=== PATIENT | male | born 1940 | race Caucasian/White ===

== ENCOUNTER 2016-06-02 05:01 | Day surgery (SDC) | payer BC ==
[2016-05-20 08:16] VITALS: BMI 29.0
--- NOTE | 2016-05-20 08:48 | PAT Medication Instructions ---
Service Date May 20, 2016. Current Home Medication List Ascorbic Acid (Vitamin C), 1 TAB PO QAM Bimatoprost (Lumigan), 1 DROP OPR QAM Brinzolamide-Brimonidine Tartr (Simbrinza), 1 DROP OPR QAM Fish Oil ([place]-3), 1 CAP PO QAM Losartan Potassium (Cozaar), 50 MG PO QAM Multivitamin (Multivitamin), 1 TAB PO QAM Prednisolone Acetate (Ophth) (Pred Forte 1% Oph), 1 DROPS OPR QID PRN for DIRECTED Tamsulosin Hcl (Flomax), 0.4 MG PO QAM [Ketorolac Eye], 1 DROP OP UD Medication Instructions For Your Scheduled Surgery - Hold the following medications starting 05/21/16: Fish Oil ([place]-3), 1 CAP PO QAM - Hold the following medications the morning of surgery: Tamsulosin Hcl (Flomax), 0.4 MG PO QAM Multivitamin (Multivitamin), 1 TAB PO QAM Losartan Potassium (Cozaar), 50 MG PO QAM Ascorbic Acid (Vitamin C), 1 TAB PO QAM - Take the following medications the morning of surgery with a sip of water: [Ketorolac Eye], 1 DROP OP UD Prednisolone Acetate (Ophth) (Pred Forte 1% Oph), 1 DROPS OPR QID PRN for DIRECTED Brinzolamide-Brimonidine Tartr (Simbrinza), 1 DROP OPR QAM Bimatoprost (Lumigan), 1 DROP OPR QAM - Take the following medications as scheduled the night before surgery: Prednisolone Acetate (Ophth) (Pred Forte 1% Oph), 1 DROPS OPR QID PRN for DIRECTED If you have any questions please call us at [phone] (Savita Mcintyre PA-C) or [phone] or [phone]
[2016-05-20 10:02] LABS: BASO % 0.4 %; BASO ABS # 0.02 K/uL (0-0.2); COMPLETE YES; EOS % 3.6 %; HEMATOCRIT 42.4 % (42-52); IG% 0.2 %; LYMPH ABS # 1.46 K/uL (1.2-3.4); MEAN CELL VOLUME 89.3 fL (80-100); MEAN CORPUSCULAR HEMOGLOBIN 30.3 pg (25-34); MEAN PLATELET VOLUME 10.2 fL (7.4-10.4); MONO % 8.5 %; NEUT % 61.3 %; PLATELET COUNT 200 K/uL (130-400); RED BLOOD COUNT 4.75 M/uL (4.7-6.1); WHITE BLOOD COUNT 5.62 K/uL (4.8-10.8)
[2016-05-20 10:13] LABS: PARTIAL THROMBOPLASTIN RATIO 1.1
[2016-05-20 10:30] LABS: BUN/CREATININE RATIO 17.5 (10-20); CALCIUM 9.2 mg/dl (8.5-10.1); POTASSIUM 4.2 mmol/L (3.5-5.1)
[~2016-06-02] VITALS: Ht 182.9 cm; Wt 96.3 kg
[~2016-06-02 05:01] MED LIST: ASCA500 PO; BIMA0.01 OPR; BRIN3SUS OPR; KETOROLAC EYE OP; LOSA50TA6 PO; MULT-506 PO; OMEG10007 PO; PRED1SUS3 OPR; TAMS0.4C59 PO
[2016-06-02 05:41] VITALS: BP 135/84; PULSE 62; TEMP 36.7; O2SAT 96; Ht 182.9 cm; Wt 96.3 kg
[2016-06-02] MEDS ORDERED: CLINDAMYCIN 600 MG/54 ML D5W IV SCH (06:00)
[2016-06-02] MEDS ORDERED: LACTATED RINGER'S 1000ML 1,000 ML IV SCH ×2 (06:00)
[2016-06-02] MEDS ORDERED: HEPARIN SOD 5000 UNIT/0.5 ML CARP SQ SCH (06:00)
[2016-06-02] MEDS ORDERED: ONDANSETRON INJ 2 MG/ML 2 ML VIAL ONE (06:44)
[2016-06-02] MEDS ORDERED: NEOSTIGMINE METHYLSULFATE 5 MG/5 ML SYR ONE (06:44)
[2016-06-02] MEDS ORDERED: LIDOCAINE HCL 2% 2 ML VIAL (20MG/ML) ONE (06:44)
[2016-06-02] MEDS ORDERED: PROPOFOL IV EMULSION 10 MG/ML 20 ML VIAL IV ONE (06:44)
[2016-06-02] MEDS ORDERED: MIDAZOLAM HCL 1 MG/ML 2ML VIAL ONE (06:44)
[2016-06-02] MEDS ORDERED: DEXAMETHASONE SOD INJ 4 MG/ML VIAL ONE (06:44)
[2016-06-02] MEDS ORDERED: FENTANYL CITRATE INJ 50 MCG/1 ML 2 ML VIAL ONE ×2 (06:44)
[2016-06-02] MEDS ORDERED: GLYCOPYRROLATE INJ 0.2 MG/ML VIAL ONE (06:44)
[2016-06-02] MEDS ORDERED: ROCURONIUM BROMIDE 10 MG/ML 5 ML VIAL ONE (06:44)
[2016-06-02] MEDS ORDERED: BUPIVACAINE/EPINEPHRINE 0.5% MPF 1:200,000 30 ML VIAL ONE (06:47)
[2016-06-02] MEDS ORDERED: ONDANSETRON INJ 2 MG/ML 2 ML VIAL IV PRN ×2 (07:00→08:15)
[2016-06-02] MEDS ORDERED: LACTATED RINGER'S 1000ML 1,000 ML IV PRN (07:00)
[2016-06-02] MEDS ORDERED: FENTANYL CITRATE INJ 50 MCG/1 ML 2 ML VIAL IV PRN (07:00)
--- NOTE | 2016-06-02 07:07 | History and Physical ---
History & Physical Date Jun 02, 2016. Chief Complaint right inguinal hernia History of Present Illness The patient is a 75 year old male with complaints of right groin pain /bulge Past Medical/Surgical History Medical Problems: (1) Calculus Of Kidney (2) Diverticulosis Colon (W/O Ment Of Hemorrhage) (3) Glaucoma Nos (4) Hyperlipidemia Nec/Nos (5) Hypertension Nos Additional History Hepatic Disease: No Endocrine Disorder: No Kidney Disease: No Hypertension: Yes Heart Disease: No Bleeding Tendencies: No Infectious Diseases: No Allergies Coded Allergies: Penicillins (Verified Allergy, Unknown, UNSURE OF RXN, 06/02/16) Tetracyclines (Verified Allergy, Unknown, WAS TOLD HE WAS ALLERGIC, UNSURE OF RXN, 06/02/16) Home Medications Scheduled Ascorbic Acid (Vitamin C), 1 TAB PO QAM Bimatoprost (Lumigan), 1 DROP OPR QAM Brinzolamide-Brimonidine Tartr (Simbrinza), 1 DROP OPR QAM Fish Oil ([place]-3), 1 CAP PO QAM Losartan Potassium (Cozaar), 50 MG PO QAM Multivitamin (Multivitamin), 1 TAB PO QAM Tamsulosin Hcl (Flomax), 0.4 MG PO QAM Scheduled PRN Prednisolone Acetate (Ophth) (Pred Forte 1% Oph), 1 DROPS OPR QID PRN for DIRECTED Physical Examination Skin: warm/dry Eyes: normal inspection, EOMI ENT: normal ENT inspection Head: normocephalic Neck: supple, no adenopathy Respiratory/Chest: lungs clear, normal breath sounds Cardiovascular: regular rate, rhythm, no edema Abdomen / GI: normal bowel sounds, + pertinent finding (right inguinal hernia) Extremities: normal inspection Diagnosis right inguinal hernia Plan of Treatment open right inguinal hernia repair with mesh
[2016-06-02] MEDS ORDERED: HYDR-5688 PO (07:08)
--- NOTE | 2016-06-02 07:09 | Discharge Instructions ---
Discharge Instructions Admission Reason for Admission: Right Inguinal Hernia Discharge Discharge Diagnosis / Problem: right inguinal hernia Discharge Goals Goal(s): Decrease discomfort, Improve function Activity Recommendations Activity Limitations: as noted below Lifting Limitations: no more than 10 pounds Exercise/Sports Limitations: until after follow-up appointment May Resume Sexual Activity: after follow-up appointment Shower/Bathe: tomorrow . Instructions / Follow-Up Instructions / Follow-Up f/u Dr. Stevens 1-2 weeks Current Hospital Diet Patient's current hospital diet: Discharge Diet Recommended Diet: Regular Diet Procedures Procedures Performed: open right inguinal hernia repair with mesh Pending Studies Studies pending at discharge: no Medical Emergencies . Who to Call and When: Medical Emergencies: If at any time you feel your situation is an emergency, please call 911 immediately. . Non-Emergent Contact Non-Emergency issues call your: Primary Care Provider, Surgeon Call Non-Emergent contact if: temperature is above 101, wound has increased drainage, wound has increased redness, wound has increased pain . "Provider Documentation" section prepared by Ankit Stevens. VTE Core Measure Inpt VTE Proph given/why not?: Unfractionated heparin SQ, SCD's
[2016-06-02] MEDS ORDERED: KETOROLAC TROMETHAMINE 30 MG/ML VIAL ONE (07:24)
[2016-06-02] MEDS ORDERED: EpHEDrine SULFATE 50MG/5ML SYR ONE (07:44)
[2016-06-02] MEDS ORDERED: SODIUM CHLORIDE 0.9% 1000ML 1,000 ML IV SCH (08:11)
--- NOTE | 2016-06-02 08:11 | [facility] Operative Report ---
Operative Report Operative Date Jun 02, 2016. Pre-Operative Diagnosis Right inguinal hernia Post-Operative Diagnosis direct and indirect right inguinal hernia Procedure(s) Performed open right inguinal hernia repair with mesh Surgeon Dr. Ankit Stevens Director Of Video Analytics Surgeon(s) Ugo Mosher PA-C Findings direct and indirect right inguinal hernia Anesthesia general with LMA Complication(s) None Disposition Recovery Room / PACU I attest to the content of the Intraoperative Record and any orders documented therein. Any exceptions are noted below.
[2016-06-02] MEDS ORDERED: KETOROLAC TROMETHAMINE 30 MG/ML VIAL IV. PRN (08:15)
[2016-06-02] MEDS ORDERED: IBUPROFEN 600 MG TAB PO PRN (08:15)
[2016-06-02] MEDS ORDERED: HYDROCODONE/ACETAMOPHEN 5/325MG TAB PO PRN ×2 (08:15)
--- NOTE | 2016-06-02 09:04 | Anesthesiology Progress Note ---
Anesthesia Post Op Note Date & Time Jun 02, 2016 at 09:05 Vital Signs Pain Intensity: 2 Vital Signs Past 12 Hours Date Time Temp Pulse Resp B/P Pulse Ox O2 Delivery O2 Flow Rate FiO2 06/02/16 09:02 36.4 06/02/16 08:58 137/71 06/02/16 08:56 73 15 06/02/16 08:56 74 15 97 06/02/16 08:53 137/75 06/02/16 08:51 72 15 97 06/02/16 08:51 72 15 06/02/16 08:50 72 16 94 06/02/16 08:50 70 16 06/02/16 08:48 139/72 06/02/16 08:45 72 16 06/02/16 08:45 72 16 96 06/02/16 08:44 72 16 06/02/16 08:44 73 16 98 06/02/16 08:43 138/68 06/02/16 08:39 73 15 100 06/02/16 08:39 72 15 06/02/16 08:38 146/71 06/02/16 08:34 75 16 100 06/02/16 08:34 75 16 06/02/16 08:33 67 15 138/67 100 06/02/16 08:33 68 15 06/02/16 08:28 79 16 145/65 100 06/02/16 08:28 78 16 06/02/16 08:23 82 14 146/66 100 06/02/16 08:23 36.2 89 14 149/63 99 Mask 10 06/02/16 08:23 83 14 06/02/16 05:41 36.7 62 18 135/84 96 Room Air Notes Mental Status: alert / awake / arousable, participated in evaluation Pt Amnestic to Procedure: Yes Nausea / Vomiting: adequately controlled Pain: adequately controlled Airway Patency, RR, SpO2: stable & adequate BP & HR: stable & adequate Hydration State: stable & adequate Anesthetic Complications: no major complications apparent
[2016-06-02 09:20] VITALS: BP 143/73; PULSE 69; TEMP 36.4; O2SAT 95
[2016-06-02 09:46] VITALS: BP 150/69; PULSE 79; O2SAT 95
[2016-06-02 10:22] VITALS: BP 166/92; PULSE 88; TEMP 36.7; O2SAT 97
--- NOTE | 2016-06-02 10:45 | OPERATIVE REPORT ---
DATE OF OPERATION: 06/02/2016 PREOPERATIVE DIAGNOSIS: Left inguinal hernia. POSTOPERATIVE DIAGNOSIS: Direct and indirect left inguinal hernia. PROCEDURE: Open left inguinal hernia repair with mesh. SURGEON: Dr. Stevens. X RAY PHYSICIAN: Ugo Mosher PA-C. ESTIMATED BLOOD LOSS: Approximately 10 mL. COMPLICATIONS: No immediate. ANESTHESIA: General. The patient tolerated the procedure well. OPERATIVE NOTE: After informed consent was obtained, the patient taken to the operating suite and placed in supine position. After successful intubation a Lee catheter was placed and the left groin was sterilely prepped and draped in usual fashion. A left inguinal incision was made with a 10 blade scalpel and carried down through the soft tissue using electrocautery. We were able to skeletonize the external oblique aponeurosis. A new blade was used to make a small incision and Metzenbaum scissors were used to extend this down through the external ring as well as for several centimeters proximally. Once in the inguinal canal, we used some blunt dissection to free up the cord and cord structures from surrounding tissue. A [place]a clamp was used to grab the cord and cord structures and elevate them. A blunt finger was used to sweep the cord structures off the pubic bone and a [place] drain placed around them. When we did this, we noticed a moderate sized direct hernia through the floor of the canal. As we inspected the cord structures we also noted a garden variety indirect hernia sac. We were able to use primarily blunt dissection to free this from the cord and cord structures as well as small amounts of electrocautery. When we got it down to its neck we were able to clamp the neck of the sac and divide it and tie it off with 3-0 Vicryl and dunk it back into the abdominal cavity. We then irrigated the wound. A gustafson-holed precut polypropylene mesh was used as an onlay. It was secured distally to Elmer's ligament, laterally along the shelving portion of Poupart's ligament and medially along the rectus musculature. The "arms" of the mesh were wrapped around behind the cord and cord structures and secured to underlying muscle. The mesh was tension free and did not impinge on the cord structures themselves. A final irrigation was performed. There was adequate hemostasis. We did inject around the edges of the mesh with Marcaine for postoperative analgesia. We then closed the external oblique aponeurosis with 2-0 Vicryl in a running fashion. Soft tissue was irrigated and closed with 3-0 Vicryl and 4-0 Monocryl. Some additional Marcaine was injected around the skin. Dermabond was used as a dressing. The patient was awakened, extubated, and transferred to recovery in stable condition. I attest to the content of the Intraoperative Record and any orders documented therein. Any exceptio ns are noted below.
[2017-01-03] MEDS ORDERED: ARTISOL12 OPB (10:23)
[2017-01-03] MEDS ORDERED: ERYOPO OPR (10:23)
== END 2016-06-02 10:30 | disposition home or self-care (01) ==
LOC: C.ACU 05:01
PROVIDERS: ATTEND Surgery
DX: K40.90 Unilateral inguinal hernia, without obstruction or gangrene, not specified as recurrent (principal); I10 Essential (primary) hypertension; N20.0 Calculus of kidney; K57.30 Diverticulosis of large intestine without perforation or abscess without bleeding; E78.5 Hyperlipidemia, unspecified; Z88.0 Allergy status to penicillin; Z88.1 Allergy status to other antibiotic agents

== ENCOUNTER → 2016-07-28 | Outpatient (CLI) | payer BC ==
[~2016-07-28] MED LIST changes: +ARTISOL12 OPB; +ERYOPO OPR; +HYDR-5688 PO; -KETOROLAC EYE OP; +TAMS0.4C38 PO
[2016-07-28 10:26] LABS: ALT/SGPT 25 U/L (12-78); AST/SGOT 13 U/L (15-37); BLOOD UREA NITROGEN 18 mg/dl (7-18); BUN/CREATININE RATIO 18.6 (10-20); CALCIUM 8.8 mg/dl (8.5-10.1); CARBON DIOXIDE 29 mmol/L (21-32); CHLORIDE 108 mmol/L (98-107); CHOLESTEROL 174 mg/dl (0-200); CREATININE 0.94 mg/dl (0.60-1.40); GLUCOSE 94 mg/dl (70-99); POTASSIUM 4.1 mmol/L (3.5-5.1); SODIUM 143 mmol/L (136-145)
[2016-07-28 10:30] LABS: CHOLESTEROL/HDL RATIO 2.9; HDL CHOLESTEROL 61 mg/dl; LDL CHOLESTEROL CALCULATED 103 mg/dl; TRIGLYCERIDES 52 mg/dl (0-150); VERY LOW DENSITY LIPOPROT CALC 10 mg/dl
[2016-07-28 11:52] LABS: ESTIMATED AVERAGE GLUCOSE 97 mg/dl; HA1C FLAG Normal (Normal)
== END | disposition home or self-care (01) ==
LOC: C.LAB1850 09:18
PROVIDERS: ATTEND Internal Medicine
DX: R73.01 Impaired fasting glucose (principal); E78.5 Hyperlipidemia, unspecified; N40.0 Benign prostatic hyperplasia without lower urinary tract symptoms

== ENCOUNTER → 2016-10-06 | Outpatient (CLI) | payer BC ==
--- NOTE | 2016-10-06 09:35 | DIAGNOSTIC IMAGING REPORT ---
KUB CLINICAL HISTORY: NEPHROLITHIASIS COMPARISON STUDY: 11/10/2014 FINDINGS: The soft tissues, psoas shadows, renal outlines and intestinal gas pattern appear normal. There is no evidence for bowel obstruction. No abnormal abdominal calcifications are seen. IMPRESSION: Normal study. Electronically signed by: Fransisco Stafford M.D. 10/06/2016 9:34 AM Dictated Date/Time: 10/06/2016 9:33 AM
== END | disposition home or self-care (01) ==
LOC: C.RAD1850 08:53
PROVIDERS: ATTEND Urology
DX: N20.0 Calculus of kidney (principal); N40.0 Benign prostatic hyperplasia without lower urinary tract symptoms

== ENCOUNTER → 2016-11-29 | Outpatient (CLI) | payer BC ==
--- NOTE | 2016-11-29 17:44 | DIAGNOSTIC IMAGING REPORT ---
BRAIN WITHOUT CONTRAST HISTORY: Mental status change IMBALANCE TECHNIQUE: Multiplanar multisequence MRI of the brain was performed without the use of contrast. COMPARISON STUDY: None. FINDINGS: Diffusion-weighted images show no evidence for an acute ischemic process. There are findings of chronic small vessel change of the periventricular deep white matter regions. This is considered moderate. There are findings of mild age-related cerebral atrophy. Ventricular system is midline. Sella and parasellar regions are unremarkable. Postcontrast images are considered negative for an enhancing lesion. No abnormal enhancement characteristics of the internal auditory canals is identified. IMPRESSION: Age-related change. Moderate chronic small vessel change. No acute process. The above report was generated using voice recognition software. It may contain grammatical, syntax or spelling errors. Electronically signed by: Fransisco Stafford M.D. 11/29/2016 5:42 PM Dictated Date/Time: 11/29/2016 5:33 PM
== END | disposition home or self-care (01) ==
LOC: C.MRIBC 16:41
PROVIDERS: ATTEND Internal Medicine
DX: R26.89 Other abnormalities of gait and mobility (principal); H93.19 Tinnitus, unspecified ear

== ENCOUNTER → 2017-01-18 | Day surgery (SDC) | payer BC ==
[2017-01-03 10:23] VITALS: BMI 28.0
[~2017-01-18] VITALS: Ht 182.9 cm; Wt 94.1 kg
[~2017-01-18] MED LIST changes: -BRIN3SUS OPR; -HYDR-5688 PO; -PRED1SUS3 OPR; +SODIUM CHLORIDE 0.9% 500ML 500 ML IV ONE
[2017-01-18 14:33] VITALS: Ht 182.9 cm; Wt 94.1 kg
--- NOTE | 2017-01-18 15:11 | Endo History and Physical ---
History & Physical Date of Service: Jan 18, 2017. Chief Complaint: SCREENING FOR COLON CANCER Referring Physician: DR CASILLAS History of Present Illness 76 yo CM who presents for screening colonoscopy. Past Surgical History Hx Cardiac Surgery: No Hx Internal Defibrillator: No Hx Pacemaker: No Hx Abdominal Surgery: Yes (INGUINAL HERNIA) Hx of Implantable Prosthesis: No Hx Post-Op Nausea and Vomiting: No Hx Cancer Surgery: No Hx Thoracic Surgery: Yes (EXCISION OF LESION ON CHEST WALL) Hx Orthopedic: Yes (LT KNEE MENISICUS REPAIR, RT KNEE ACL REPAIR, PCL REPAIR) Hx Urinary Tract Surgery: Yes (LITHOTRIPSY) Family History None Social History Smoking Status: Former Smoker Hx Substance Use: No Hx Alcohol Use: Yes (1 DRINK DAILY ON AVERAGE) Allergies Coded Allergies: Penicillins (Verified Allergy, Unknown, UNSURE OF RXN, 01/03/17) WAS TOLD A KID ? REACTION Tetracyclines (Verified Allergy, Unknown, WAS TOLD HE WAS ALLERGIC, UNSURE OF RXN, 01/03/17) Current Medications Reported Home Medications Medications Dose Route/Sig Max Daily Dose Days Date Category Artificial Tears (Artificial Tear Solution) 1 Nai Nai 1 Drops OPB QID PRN 01/03/17 Reported Erythromycin Opth (Erythromycin) 12 Appln/3.5 Gm Oint 1 Appln OPR HS 01/03/17 Reported Vitamin C (Ascorbic Acid) 500 Mg Tab 1 Tab PO QAM 05/20/16 Reported Cozaar (Losartan Potassium) 50 Mg Tab 50 Mg PO QAM 05/20/16 Reported [place]-3 (Fish Oil) 1 Ea Cap 1 Cap PO QAM 05/20/16 Reported Flomax (Tamsulosin Hcl) 0.4 Mg Cap 0.4 Mg PO HS 04/28/13 Reported Multivitamin (Multivitamins) Tab 1 Tab PO QAM 09/07/10 Reported Vital Signs Weight (Kilograms): 94.09 Height (Feet): 6 Height (Inches): 0 Date Time Temp Pulse Resp B/P (MAP) Pulse Ox O2 Delivery O2 Flow Rate FiO2 01/18/17 14:38 37.1 86 18 158/75 (102) 100 Room Air Physical Exam General Appearance: WD/WN, no apparent distress Respiratory/Chest: Auscultation: breath sounds normal Cardiovascular: Heart Auscultation: RRR Abdomen: Bowel Sounds: normal Inspection & Palpation: soft, non-distended, no tenderness, guarding & rebound Assessment and Plan Assessment: 76 yo CM who presents for screening colonoscopy. Plan: Proceed with colonoscopy.
--- NOTE | 2017-01-18 15:43 | Discharge Instructions ---
Endoscopy Patient Instructions Date / Procedure(s) Performed Jan 18, 2017. Colonoscopy Allergy Information Coded Allergies: Penicillins (Verified Allergy, Unknown, UNSURE OF RXN, 01/03/17) WAS TOLD A KID ? REACTION Tetracyclines (Verified Allergy, Unknown, WAS TOLD HE WAS ALLERGIC, UNSURE OF RXN, 01/03/17) Discharge Date / Findings Jan 18, 2017. Colon polyps Diverticulosis Internal hemorrhoids Reported Home Medications Medications Dose Route/Sig Max Daily Dose Days Date Category Artificial Tears (Artificial Tear Solution) 1 Nai Nai 1 Drops OPB QID PRN 01/03/17 Reported Erythromycin Opth (Erythromycin) 12 Appln/3.5 Gm Oint 1 Appln OPR HS 01/03/17 Reported Vitamin C (Ascorbic Acid) 500 Mg Tab 1 Tab PO QAM 05/20/16 Reported Cozaar (Losartan Potassium) 50 Mg Tab 50 Mg PO QAM 05/20/16 Reported [place]-3 (Fish Oil) 1 Ea Cap 1 Cap PO QAM 05/20/16 Reported Flomax (Tamsulosin Hcl) 0.4 Mg Cap 0.4 Mg PO HS 04/28/13 Reported Multivitamin (Multivitamins) Tab 1 Tab PO QAM 09/07/10 Reported Provider Instructions Activity Restrictions - No exercising or heavy lifting for 24 hours. - Do not drink alcohol the day of the procedure. - Do not drive a car or operate machinery until the day after the procedure. - Do not make any important decisions or sign important papers in 24 hours after the procedure. Following Day: - Return to full activity which may include returning to work/school. Diet Start your diet with liquids and light foods (jello, soup, juice, toast). Then eat your usual diet if not nauseated. Treatment For Common After Affects For mild abdominal pain, bloating, or excessive gas: - Rest - Eat lightly - Lie on right side Follow-Up Information Follow-up with DR CASILLAS as scheduled Anesthesia Information What You Should Know You have had a procedure that required some medicine to reduce anxiety and discomfort. This treatment is called moderate sedation. After receiving the treatment, you may be sleepy, but you will be able to breathe on your own. The effects of the treatment may last for several hours. Follow these instructions along with Activity/Diet recommendations noted above: * Do NOT do anything where dizziness or clumsiness would be dangerous. * Rest quietly at home today, then you can be up and about tomorrow. * Have a responsible person stay with you the rest of today. * You may have had an I.V. today. If so, you may take the dressing off later today. Recommendations Call your doctor if: * Trouble breathing * Continuous vomiting for more than 24 hours * Temperature above 101 degrees * Severe abdominal pain or bloating * Pain not relieved by pain medicine ordered * There is increased drainage or redness from any incision * A large amount of rectal bleeding greater than 2-3 tablespoons. (If you had a polyp/s removed or have hemorrhoids, a small amount of blood - from the rectum is to be expected.) * You have any unanswered questions or concerns. IN THE EVENT OF A SERIOUS EMERGENCY, GO TO THE NEAREST EMERGENCY ROOM Your discharge instructions were prepared by provider Kirk Avilez. Patient Instructions Signature Page Timmy Melendez Patient (or Guardian) Signature/Date: I have read and understand the instructions given to me by my caregivers. Caregiver/RN/Doctor Signature/Date: The above-named patient and/or guardian has received patient instructions on this date. + Original Patient Signature Page (only) stays with chart. Please make copy for patient.
--- NOTE | 2017-01-18 15:56 | GI REPORT ---
Procedure Date: 01/18/2017 3:00 PM Procedure: Colonoscopy Indications: Screening for colorectal malignant neoplasm Medicines: Monitored Anesthesia Care Complications: No immediate complications. Estimated Blood Loss: Estimated blood loss: none. Procedure: Pre-Anesthesia Assessment: - Prior to the procedure, a History and Physical was performed, and patient medications and allergies were reviewed. The patient's tolerance of previous anesthesia was also reviewed. The risks and benefits of the procedure and the sedation options and risks were discussed with the patient. All questions were answered, and informed consent was obtained. Prior Anticoagulants: The patient has taken no previous anticoagulant or antiplatelet agents. ASA Grade Assessment: II - A patient with mild systemic disease. After reviewing the risks and benefits, the patient was deemed in satisfactory condition to undergo the procedure. After I obtained informed consent, the scope was passed under direct vision. Throughout the procedure, the patient's blood pressure, pulse, and oxygen saturations were monitored continuously. The scope was introduced through the anus and advanced to the terminal ileum. The colonoscopy was performed without difficulty. The patient tolerated the procedure well. The quality of the bowel preparation was good. The terminal ileum, ileocecal valve, appendiceal orifice, and rectum were photographed. Findings: Four sessile polyps were found in the rectum and in the transverse colon. The polyps were 5 to 8 mm in size. These polyps were removed with a hot snare. Resection and retrieval were complete. Multiple small-mouthed diverticula were found in the sigmoid colon. Non-bleeding internal hemorrhoids were found during retroflexion. The hemorrhoids were small. Impression: - Four 5 to 8 mm polyps in the rectum and in the transverse colon, removed with a hot snare. Resected and retrieved. - Diverticulosis in the sigmoid colon. - Non-bleeding internal hemorrhoids. Recommendation: - Resume previous diet. - Continue present medications. - Repeat colonoscopy for surveillance based on pathology results. - Return to primary care physician as previously scheduled. Kirk Avilez, DO 01/18/2017 3:56:15 PM This report has been signed electronically. Note Initiated On: 01/18/2017 3:00 PM I attest to the content of the Intraoperative Record and orders documented therein, exceptions below
--- NOTE | 2017-01-18 16:05 | Anesthesiology Progress Note ---
Anesthesia Post Op Note Date & Time Jan 18, 2017 at 16:05 Vital Signs Pain Intensity: 0 Vital Signs Past 12 Hours Date Time Temp Pulse Resp B/P (MAP) Pulse Ox O2 Delivery O2 Flow Rate FiO2 01/18/17 15:50 72 16 94/51 (65) 96 Room Air 01/18/17 14:38 37.1 86 18 158/75 (102) 100 Room Air Notes Mental Status: alert / awake / arousable, participated in evaluation Pt Amnestic to Procedure: Yes Nausea / Vomiting: adequately controlled Pain: adequately controlled Airway Patency, RR, SpO2: stable & adequate BP & HR: stable & adequate Hydration State: stable & adequate Anesthetic Complications: no major complications apparent
[2017-01-18 16:11] VITALS: BP 137/79; PULSE 64; O2SAT 98
== END | disposition home or self-care (01) ==
LOC: C.GI 14:17
PROVIDERS: ATTEND Internal Medicine
DX: Z12.11 Encounter for screening for malignant neoplasm of colon (principal); K62.1 Rectal polyp; K57.30 Diverticulosis of large intestine without perforation or abscess without bleeding; K64.8 Other hemorrhoids; Z87.442 Personal history of urinary calculi; Z87.891 Personal history of nicotine dependence; I10 Essential (primary) hypertension; M19.90 Unspecified osteoarthritis, unspecified site

== ENCOUNTER 2017-01-27 19:29 | Emergency (ER) | payer BC ==
[~2017-01-27] VITALS: Ht 182.9 cm; Wt 98.7 kg
[~2017-01-27 19:29] MED LIST changes: -BIMA0.01 OPR; -SODIUM CHLORIDE 0.9% 500ML 500 ML IV ONE; -TAMS0.4C38 PO
[2017-01-27 19:35] VITALS: BP 164/90; PULSE 67; TEMP 36.6; O2SAT 96; Ht 182.9 cm; Wt 98.7 kg
[2017-01-27] MEDS ORDERED: XYLOCAINE 1%/SOD BICARB 20 ML VIAL INFIL ONE (20:30)
[2017-01-27] MEDS ORDERED: BUPIVACAINE 0.5 % 5 MG/1 ML MPF 30ML VIAL INFIL ONE (20:30)
[2017-01-27] MEDS ORDERED: TAMS0.4C38 PO (20:34)
--- NOTE | 2017-01-27 21:34 | DIAGNOSTIC IMAGING REPORT ---
L FINGER(S) MIN 2 VIEWS ROUTINE CLINICAL HISTORY: 76 years-old Male presenting with LEFT 3RD FINGER, EVAL FX. TECHNIQUE: Frontal, oblique, and lateral views of the left third finger were obtained. COMPARISON: None. FINDINGS: No acute fracture or malalignment. No radiographic soft tissue abnormality. IMPRESSION: No acute osseous injury of the left third finger. Electronically signed by: Len Werner M.D. 01/27/2017 9:32 PM Dictated Date/Time: 01/27/2017 9:31 PM
--- NOTE | 2017-01-27 21:57 | EMERGENCY ROOM VISIT NOTE ---
ED Visit Note First contact with patient: 20:13 CHIEF COMPLAINT: Left third finger laceration from a router just prior to arrival HISTORY OF PRESENT ILLNESS: Patient is a [id number] 76-year-old white male who presents to the emergency department for evaluation of an injury to the left third finger. He was using a router, when he accidentally struck the finger. He gouged the tip of the finger, including a portion of the nail. Bleeding has been controlled. He notes a mild, throbbing, 1/10 pain. He was concerned because the nail was involved that he might need evaluation. There is also a very small, superficial skin flap on the left fifth finger pad, which the patient does not feel needs any intervention. Denies weakness or numbness of the finger. REVIEW OF SYSTEMS: Review of systems as per HPI. All other systems reviewed were negative. At least 6 systems reviewed. PMH: Electronic medical records are reviewed and summarized as above/below. See Problem List. He believes that his tetanus is up-to-date. SOCIAL HISTORY: Patient lives at home by himself. He is retired. Nonsmoker. PHYSICAL EXAM: Vital Signs: Reviewed Nurse's notes. CONSTITUTIONAL: Patient is a pleasant well-appearing 76-year-old white male who is awake and alert and in no acute distress. INTEGUMENTARY: There is a more avulsion-type injury through the radial corner of the left third fingernail, with minor, superficial lacerations to the underlying nailbed. There is a loose corner of the nail which is no longer seated in the nail bed. There is no repairable laceration. The size of avulsed tissue is roughly 1 x 1 cm. There is no foreign material in the wound and it looks clean. There is no bleeding. No deep structures such as distal phalanx visualized in the base of the wound. Range of motion is full. EMERGENCY DEPARTMENT COURSE: X-rays of the left third finger were obtained and did not note any acute bony a now your tuft fracture. Using sterile technique, the finger was prepped with Betadine and a digital block was performed using a 2 :1 mixture of 1% plain buffered lidocaine and 0.5% Sensorcaine. When adequate anesthesia was obtained, the finger was scrubbed thoroughly with Betadine and irrigated copiously with normal saline solution. The injury was inspected thoroughly. A small corner of the nail was completely excised. Nailbed was inspected, and there was no ability to repair with sutures. The wound will need to heal by secondary intention. A Xeroform dressing and a mental fingertip cage were applied. There is no indication for antibiotics at this time. There is no evidence for fracture, or tendinous injury. Wound care measures were discussed. The patient was educated on the worrisome signs or symptoms for which he should return to the emergency department. He will confirm his tetanus with his doctor asked week. He was encouraged to return to the emergency department at any point for worsening symptoms. Medication reconciliation: I attest that I have personally reviewed the patient' s current medication list. Blood pressure screening: Patient was found to have a slightly elevated blood pressure due to circumstances. I do not believe that the patient requires hypertension monitoring. L FINGER(S) MIN 2 VIEWS ROUTINE CLINICAL HISTORY: 76 years-old Male presenting with LEFT 3RD FINGER, EVAL FX. TECHNIQUE: Frontal, oblique, and lateral views of the left third finger were obtained. COMPARISON: None. FINDINGS: No acute fracture or malalignment. No radiographic soft tissue abnormality. IMPRESSION: No acute osseous injury of the left third finger. Problem List Medical Problems: (1) Acute bronchitis Status: Resolved (2) Acute bronchitis Status: Resolved (3) Acute bronchitis Status: Resolved (4) Calculus Of Kidney Status: Resolved (5) Diverticulosis Colon (W/O Ment Of Hemorrhage) Status: Chronic (6) Glaucoma Nos Status: Chronic (7) Hyperlipidemia Nec/Nos Status: Chronic (8) Hypertension Status: Chronic Current/Historical Medications Scheduled Ascorbic Acid (Vitamin C), 500 MG PO QAM Erythromycin Opth (Erythromycin Opth), 1 APPLN OPR HS Fish Oil ([place]-3), 1 CAP PO QAM Losartan Potassium (Cozaar), 50 MG PO QAM Multivitamin (Multivitamin), 1 TAB PO QAM Tamsulosin Hcl (Flomax), 0.4 MG PO HS Scheduled PRN Artificial Tear Solution (Artificial Tears), 1 DROP OPB QID PRN for Dry Eye(s) Allergies Coded Allergies: Penicillins (Verified Allergy, Unknown, UNSURE OF RXN, 01/03/17) WAS TOLD A KID ? REACTION Tetracyclines (Verified Allergy, Unknown, WAS TOLD HE WAS ALLERGIC, UNSURE OF RXN, 01/03/17) Vital Signs Date Time Temp Pulse Resp B/P (MAP) Pulse Ox O2 Delivery O2 Flow Rate FiO2 01/27/17 19:35 36.6 67 18 164/90 96 Room Air Departure Information Impression Primary Impression: Nailbed laceration, finger Referrals Chadwick Degroot M.D. (PCP) Patient Instructions My [facility] Additional Instructions Keep dressing in place for 48 hrs, then remove. Clean wound daily, cover with an antibiotic ointment and keep covered until it heals. Wear the metal fingertip cage as needed for support. Return for any signs of infection ( increasing redness, swelling, drainage). Ice and elevate for swelling and pain. Ibuprofen 600 mg and Tylenol 1000 mg every 6 hrs for pain. Problem Qualifiers Primary Impression: Nailbed laceration, finger Encounter type: initial encounter Qualified Codes: S61.319A - Laceration without foreign body of unspecified finger with damage to nail, initial encounter
== END 2017-01-27 22:14 | disposition home or self-care (01) ==
LOC: C.EDB 19:30 → C.EDD 22:14
DX: S61.319A Laceration without foreign body of unspecified finger with damage to nail, initial encounter (principal); W31.9XXA Contact with unspecified machinery, initial encounter; K57.90 Diverticulosis of intestine, part unspecified, without perforation or abscess without bleeding; H40.9 Unspecified glaucoma; E78.5 Hyperlipidemia, unspecified; I10 Essential (primary) hypertension

== ENCOUNTER → 2017-05-08 | Outpatient (CLI) | payer BC ==
[~2017-05-08] MED LIST changes: +TAMS0.4C38 PO; -TAMS0.4C59 PO
--- NOTE | 2017-05-08 09:09 | DIAGNOSTIC IMAGING REPORT ---
R FOOT MIN 3 VIEWS ROUTINE HISTORY: 76 years-old Male M79.673 Foot paintenderness on the latereral aspect of the foref acute lateral right foot pain COMPARISON: None available TECHNIQUE: 3 views of the right foot FINDINGS: The bones appear mildly demineralized. Moderate degenerative changes are seen throughout the interphalangeal joints. Mild first MTP joint osteoarthritis. Midfoot alignment is anatomic. Os peroneum noted. Small moderate Achilles enthesophyte about the calcaneus. There is moderate spurring about the dorsal midfoot and hindfoot. No acute fracture or subluxation. No stress fracture or opaque foreign body. IMPRESSION: 1. No acute fracture or subluxation. 2. Degenerative changes as above. The above report was generated using voice recognition software. It may contain grammatical, syntax or spelling errors. Electronically signed by: Ta Singleton M.D. 05/08/2017 9:08 AM Dictated Date/Time: 05/08/2017 9:06 AM
== END | disposition home or self-care (01) ==
LOC: C.LAB1850 08:50
PROVIDERS: ATTEND Physician Assistant
DX: M79.671 Pain in right foot (principal)

== ENCOUNTER → 2017-07-24 | Outpatient (CLI) | payer BC ==
--- NOTE | 2017-07-24 09:21 | DIAGNOSTIC IMAGING REPORT ---
KUB HISTORY: Kidney stones. Follow-up. COMPARISON: KUB 10/06/2016. FINDINGS: The bowel gas pattern is unremarkable. There are no dilated loops of small bowel to suggest an obstruction. There are to be 2 punctate stones within the mid and lower poles of the left kidney. No definite right renal calculi. No ureteral calculi. Calcifications in the deep pelvis likely represent phleboliths. These remain unchanged. Of note, the right renal shadow is partially obscured by overlying bowel. No pneumoperitoneum or pneumatosis. IMPRESSION: Left-sided nephrolithiasis. No ureteral calculi. Electronically signed by: Jamin Rock M.D. 07/24/2017 9:20 AM Dictated Date/Time: 07/24/2017 9:18 AM
[2017-07-24 09:32] LABS: HEMATOCRIT 42.7 % (42-52); HEMOGLOBIN 14.6 g/dL (14.0-18.0); MEAN CELL VOLUME 89.9 fL (80-100); MEAN CORPUSCULAR HEMOGLOBIN 30.7 pg (25-34); MEAN CORPUSCULAR HGB CONC 34.2 g/dl (32-36); MEAN PLATELET VOLUME 10.3 fL (7.4-10.4); PLATELET COUNT 194 K/uL (130-400); RED CELL DISTRIBUTION WIDTH SD 42.9 fL (36.4-46.3); WHITE BLOOD COUNT 5.61 K/uL (4.8-10.8)
[2017-07-24 10:15] LABS: ALT/SGPT 30 U/L (12-78); AST/SGOT 17 U/L (15-37); BLOOD UREA NITROGEN 21 mg/dl (7-18); CALCIUM 8.8 mg/dl (8.5-10.1); CARBON DIOXIDE 28 mmol/L (21-32); CREATININE 0.92 mg/dl (0.60-1.40); GLUCOSE 102 mg/dl (70-99); POTASSIUM 3.9 mmol/L (3.5-5.1); SODIUM 140 mmol/L (136-145)
[2017-07-24 10:20] LABS: CHOLESTEROL 170 mg/dl (0-200); LDL CHOLESTEROL CALCULATED 100 mg/dl
== END | disposition home or self-care (01) ==
LOC: C.RAD1850 08:34
PROVIDERS: ATTEND Internal Medicine
DX: N20.0 Calculus of kidney (principal); I10 Essential (primary) hypertension; E78.5 Hyperlipidemia, unspecified; N40.0 Benign prostatic hyperplasia without lower urinary tract symptoms; R73.01 Impaired fasting glucose; G47.30 Sleep apnea, unspecified

== ENCOUNTER 2024-11-07 02:06 | Observation (INO) ==
--- NOTE | 2024-11-07 03:10 | Emergency Department Note ---
Impression & Plan Hypertension, 2nd degree AV block, Ataxia ED Provider Note ED Provider Note NAME: ALEXIS SALAZAR AGE:84 SEX: Male : 1940 ARRIVES VIA: Private vehicle INFORMANT: Patient ED PROVIDER(s): Ila Warren DO CHIEF COMPLAINT: High blood pressure HPI: This is an 84-year-old male who presents emergency department due to concern for elevated blood pressure. Patient states he made an appointment with his family doctor a few days ago due to concern for feeling off balance with walking recently. He states it was noted in the office that his blood pressure was quite high compared to his normal. He does take his losartan daily and at that time they opted to increase his usual dose. He states he has been checking his blood pressure at home and it has remained consistently high and tonight was up to 200s over 100s. Patient has noted the last few days a sense of "tightness" in his head. He denies any vision changes, tinnitus, or paresthesias compared to normal. He denies nausea, vomiting, chest pain, palpitations, shortness of breath. Patient is very active and walks his dog several times a day. Patient denies any recent insect or tick bites. No other recent travel and no other medication changes. No change in bowel or bladder function. He has noted increased fatigue recently but thought it was from the heat. PAST MEDICAL HISTORY:See Below PAST SURGICAL HISTORY:See Below FAMILY HISTORY:See Below SOCIAL HISTORY:See Below HOME MEDICATIONS:See Below ALLERGIES:See Below VITALS:See Below PHYSICAL EXAMINATION: GENERAL: alert, well appearing, well nourished, no distress, non-toxic EYE EXAM: normal conjunctiva, PERRL and EOM's grossly intact OROPHARYNX: no exudate, no erythema, lips, buccal mucosa, and tongue normal and mucous membranes are moist NECK: supple, no nuchal rigidity, no adenopathy, non-tender LUNGS: Clear to auscultation. Normal chest wall mechanics, no w/r/r HEART: no murmurs, S1 normal and S2 normal ABDOMEN: abdomen soft, non-tender, normo-active bowel sounds, no masses, no rebound or guarding. BACK: Back is symmetrical on inspection and there is no deformity, no midline tenderness, no CVA tenderness. SKIN: no rashes, petechiae, orbruising UPPER EXTREMITIES: upper extremities are grossly normal. FROM, nml pulses b/l. LOWER EXTREMITIES: No pitting edema. FROM, nml pulses b/l. NEURO EXAM: Normal sensorium, cranial nerves II-XII grossly intact, normal speech, no facial droop,nogross weakness of arms, no gross weakness of legs. Gross sensation intact. No ataxia. Vital Signs: reviewed and remarkable Differential Diagnosis: Benign hypertension, hypertensive emergency, cardiovascular pathology, toxicologic, pheochromocytoma, electrolyte abnormality, renal disease, endorgan damage, as well as other pathologies. MEDICAL DECISION MAKING: This is an 84-year-old male presents emergency department due to concerns for hypotension at home. Patient was afebrile and vital signs stable and was noted to be markedly hypertensive, he was also noted to be significantly bradycardic on arrival. Labs drawn and sent, IV established, EKG and chest ray performed at bedside interpreted me and patient monitored on telemetry. Patient with profound bradycardia on appearance of second-degree AV block. Patient with no prior cardiac history and no established induction coordination engineer. Patient was started on gentle IV fluid hydration. He was sent for CT of the head additionally due to reported ataxia and head pressure. Patient was noted to intermittently have episodes of a normal sinus rhythm however left anterior back and right with a type II second-degree block. Patient's blood pressure did improve with any further care. Given the higher risk of deterioration of type II second-degree block and elevated blood pressure readings noted at home as well as additionally here, we discussed further inpatient evaluation and management. Consultation(s): 0452: Discussed with the [place] hospitalist team for additional evaluation and mgmt. ER Treatment Provided: See below Diagnostics Interpreted By Me: -ECG: Sinus bradycardia at 38 with apparent second-degree AV block, QRS 120, QTc 394, normal axis, nonspecific ST/T wave changes -Cardiac Monitoring: An order was placed for continuous cardiac monitoring. The monitor shows a rate of 40 with sinus bradycardia rhythm. -Laboratory studies: As stated above and show below. -Imaging studies: ct head: no ich X-ray Chest: A single view study of the chest was reviewed and was negative for cardiomegaly, focal infiltrate, effusion, pulmonary edema, or wide mediastinum. Triage Nursing Note Reviewed Prior/Outside Records Reviewed Past Med/Surg History Problem List (Updated 11/07/24 @ 04:36 by Ila S. Pheasant, DO) Ataxia (Acute) 2nd degree AV block (Acute) Hypertension (Acute) Hyperglycemia Glenohumeral arthritis History of colon polyps Tinnitus (Acute) Impaired fasting glucose (Acute) Anemia, mild Left shoulder pain BPH (benign prostatic hyperplasia) Adenomatous polyp of colon Lumbar radiculopathy Dupuytrens contracture (Acute) Glaucoma of both eyes (Acute) Hyperlipidemia (Acute) pt denies Hypertension (Chronic) Nephrolithiasis (Acute) passed on own Sleep apnea (Acute) cpap Medical History Encounter for pre-operative examination History of COVID-19 Osteoarthritis BPH (benign prostatic hyperplasia) Tubular adenoma of colon Surgical History History of tooth extraction History of colonoscopy S/P knee surgery S/P arthroscopy of knee S/P hernia repair History of excision of lesion Family History Mother Coronary heart disease Father Hypertension Stroke Grandfather (Maternal) Stroke Other Prostate cancer Denies family history of Ovarian cancer Diabetes Myocardial infarction Breast cancer Colorectal cancer Social History Smoking Status: Former smoker Tobacco Type: Declines Age Started Using Tobacco: 17; Age Quit Using Tobacco: 37; packs per day: 1; Cigarettes Per Day: 20; Smoking End Date: 40 years ago; Second Hand Exposure: No; Do You Dip or Chew Tobacco: No; Hx Alcohol Use: Yes Alcohol type: wine Hx Substance Use: No Preferred Language: Cymro Communication Ability: Effective Visual Impairment: No Limitations Hearing Ability: Normal Plastic Tubing Insulation Supervisor Required: No Beliefs That Will Affect Care: None marital status: Legally Current Living Situation: Alone current occupational status: retired 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 [employer] Other Information That Helps Us Care for You: No Feels Safe at Home: Yes Safety Concerns: Feels Safe At This Time Childhood Exposure to Second-Hand Smoke: No Dental Care, Regularly: Yes Physical Activity Frequency: Daily Seatbelt Use: always Sunscreen Use: No Assistive Devices: Glasses Allergies Allergies Allergy/AdvReac Type Severity Reaction Status Date / Time Penicillins Allergy Unknown UNSURE OF Verified 11/04/24 16:32 RXN Tetracyclines Allergy Unknown WAS TOLD Verified 11/04/24 16:32 HE WAS ALLERGIC, UNSURE OF RXN Home Meds Home Medications Medication Instructions Recorded Confirmed ascorbic acid (vitamin C) 500 mg 500 mg PO QAM 02/24/19 11/07/24 capsule multivitamin 1 tab PO QAM 02/24/19 11/07/24 tafluprost (PF) 0.0015 % eye drops 1 drops ophthalmic (eye) QPM 02/24/19 11/07/24 in a dropperette (Zioptan (PF)) cholecalciferol (vitamin D3) 10 10 mcg PO QAM 12/26/19 11/07/24 mcg (400 unit) capsule erythromycin 5 mg/gram (0.5 %) eye 1 applic ophthalmic (eye) PM 12/26/19 11/07/24 ointment netarsudil 0.02 % eye drops 1 drp ophthalmic (eye) QPM 07/18/24 11/07/24 (Rhopressa) Previous Rx's Medication Instructions Recorded CPAP Machine #1 ea 03/01/21 losartan 50 mg tablet 50 mg PO QAM #90 tabs 05/29/24 tamsulosin 0.4 mg capsule 0.4 mg PO HS #90 caps 08/09/24 Results & Data (ED) Vital Signs Vital Signs - 24 hr 11/07/24 02:09 11/07/24 02:43 11/07/24 03:16 Temperature 36.3 C L Temperature Source Temporal Artery Scan Pulse Rate 65 68 Pulse Rate [Apical] 40 L Respiratory Rate 16 16 Respiratory Effort / Characteristics Non-Labored Spontaneous Non-Labored Spontaneous Respiratory Depth Normal Normal Respiratory Pattern Regular Blood Pressure 206/99 H Blood Pressure [Left Arm] 210/90 H Blood Pressure Mean 134 Blood Pressure Mean [Left Arm] 130 Blood Pressure Position Sitting Blood Pressure Position [Left Arm] Semi-fowlers Pulse Oximetry 98 99 Oxygen Delivery Method Room Air Room Air Sepsis Recent Fever Within 48 Hours No Sepsis New/Unexplained Change in Mental Status N/A Sepsis Action Taken by Nursing No Action Required 11/07/24 03:25 11/07/24 05:00 Temperature Temperature Source Pulse Rate Pulse Rate [Apical] 69 50 L Respiratory Rate 14 16 Respiratory Effort / Characteristics Non-Labored Spontaneous Non-Labored Spontaneous Respiratory Depth Normal Normal Respiratory Pattern Regular Regular Blood Pressure Blood Pressure [Left Arm] 187/83 H 185/91 H Blood Pressure Mean Blood Pressure Mean [Left Arm] 117 122 Blood Pressure Position Blood Pressure Position [Left Arm] Semi-fowlers Semi-fowlers Pulse Oximetry 98 98 Oxygen Delivery Method Room Air Room Air Sepsis Recent Fever Within 48 Hours Sepsis New/Unexplained Change in Mental Status Sepsis Action Taken by Nursing Laboratory Data 11/07/24 02:39 11/07/24 02:39 Lab Results 11/07/24 Range/Units 02:39 WBC 6.71 (4.8-10.8) K/ul RBC 4.43 L (4.70-6.10) M/uL Hgb 13.7 L (14.0-18.0) g/dl Hct 40.1 L (42.0-52.0) % MCV 90.5 (80.0-100.0) fL MCH 30.9 (25.0-34.0) pg MCHC 34.2 (32.0-36.0) g/dL RDW Std Deviation 43.1 (36.4-46.3) fL RDW Coeff of Baldo 13.0 (11.5-14.5) % Plt Count 224 (130-400) K/uL MPV 9.9 (9.4-12.4) fL Immature Gran % (Auto) 0.0 % Neut % (Auto) 54.2 % Lymph % (Auto) 32.8 % [place] % (Auto) 7.5 % Eos % (Auto) 5.1 % Baso % (Auto) 0.4 % Neut # (Auto) 3.64 (1.40-6.50) K/uL Lymph # (Auto) 2.20 (1.20-3.40) K/uL [place] # (Auto) 0.50 (0.11-0.59) K/uL Eos # (Auto) 0.34 (0.00-0.50) K/uL Baso # (Auto) 0.03 (0.00-0.20) K/uL Immature Gran # (Auto) 0.00 L (0.01-0.20) K/uL PT 10.9 (9.0-12.0) Seconds INR 1.0 (0.9-1.1) Sodium 142 (136-145) mmol/L Potassium 3.6 (3.5-5.1) mmol/L Chloride 106 (98-107) mmol/L Carbon Dioxide 27 (21-32) mmol/L Anion Gap 9 (3-11) BUN 12 (6-23) mg/dl Creatinine 0.93 (0.6-1.4) mg/dl Est Cr Clr Drug Dosing 67.2 ml/min eGFR 81.98 BUN/Creatinine Ratio 12.9 (10-20) Glucose 82 (70-99(Fasting)) mg/dl Calcium 9.0 (8.6-10.3) mg/dl Magnesium 1.9 (1.7-2.4) mg/dl Total Bilirubin 0.5 (0.2-1.0) mg/dl AST 16 (13-39) U/L ALT 14 (7-52) U/L Alkaline Phosphatase 68 (34-104) U/L Troponin I High Sens 13.6 (0-20) pg/ml Total Protein 7.1 (6.0-8.3) gm/dl Albumin 4.5 (3.4-5.0) gm/dl Globulin 2.6 (2.5-4.0) gm/dl Albumin/Globulin Ratio 1.7 (0.9-2) Lipase 48 (11-82) U/L TSH 5.412 H (0.300-4.500) uIu/ml Free T4 0.85 (0.61-1.60) ng/dl Anaplasma Smear See Comment Babesia Smear See Comment Lyme Disease Screen Negative (Negative) Imaging Data Radiologist's Impression: Chest X-Ray 11/07/24 02:52 EXAM: XR chest 1V portable CLINICAL HISTORY: ht, dysrhythmia TECHNIQUE: An X-ray image of the chest is obtained in AP projection. COMPARISON: No prior studies are available for comparison. FINDINGS: Pulmonary Parenchyma: No evidence of consolidation, collapse, or focal opacities. No pulmonary nodules are identified. No evidence of pleural effusion or pleural thickening. Heart and Mediastinum: Heart size and shape are normal. No mediastinal widening or masses. No hilar or mediastinal lymphadenopathy. Chest leads are applied. Bony Thorax: Osteoarthritic changes. No fractures or deformities. Soft Tissues: Soft tissues overlying the chest wall are unremarkable. IMPRESSION: 1. Normal chest X-ray. 2. No acute cardiopulmonary abnormalities are identified. Electronically signed by Dean Chanel 11-07-2024 03:[address] 11/07/24 02:52 EXAM: CT head/brain wo con CLINICAL HISTORY: off balance, SEVILLA, htn TECHNIQUE: Axial non-contrast CT scan of the brain was performed from the skull base to the high parietal region. One of the following dose reduction techniques were utilized for this exam: Automated exposure control, adjustment of the mA and/or kV according to patient size, use of iterative reconstruction. COMPARISON: 11/29/2016. FINDINGS: Brain Parenchyma: Bilateral periventricular and fronto-parietal hypodensities likley representing chronic ischemic changes. Age matched involutional brain changes. No evidence of acute infarct, hemorrhage, or mass effect. 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 Ventricular System: Ventricles are normal in size and configuration. No evidence of hydrocephalus or ventricular enlargement. Subarachnoid Spaces: Normal sulci and cisterns. No evidence of subarachnoid hemorrhage or extra-axial fluid collections. Cerebellum and Brainstem: No masses, lesions, or areas of abnormal density. Orbits: Normal appearance of the globes, optic nerves, and extraocular muscles. No evidence of orbital masses or abnormal density. Sinuses: Clear paranasal sinuses. No evidence of sinusitis or mucosal thickening. Mastoid Air Cells: Clear mastoid air cells. No evidence of mastoiditis. Skull: Normal skull morphology. IMPRESSION: Stationary appearance of the small vessel disease. Stationary appearance of the age matched involutional brain changes. Recommend clinical correlation. Electronically signed by Dean Chanel 11-07-2024 03:54 AM Discharge Plan Visit Data Chief Complaint: Hypertension Stated Complaint: HIGH BP ED Provider: Ila Warren Discharge Problem: Hypertension, 2nd degree AV block, Ataxia Patient Disposition: Admitted As Inpatient Condition: Fair Discharge Instructions Interventions: ED Discharge Assessment Last Done: 11/07/24 06:04
[2024-11-07 03:17] LABS: Hematocrit (blood only) 40.1 % (42.0-52.0); Hemoglobin 13.7 g/dl (14.0-18.0); Immature Granulocytes # (auto) 0.00 K/uL (0.01-0.20); Immature Granulocytes % (auto) 0.0 %; Mean Corpuscular Hemoglobin 30.9 pg (25.0-34.0); Mean Corpuscular Volume 90.5 fL (80.0-100.0); Platelet Count 224 K/uL (130-400); RDW Standard Deviation 43.1 fL (36.4-46.3); Red Blood Count 4.43 M/uL (4.70-6.10); White Blood Count 6.71 K/ul (4.8-10.8)
[2024-11-07 03:34] LABS: Alanine Aminotransferase 14.0 U/L (7-52); Albumin Globulin Ratio 1.7 (0.9-2); Alkaline Phosphatase 68.0 U/L (34-104); Anion Gap 9.0 (3-11); Bilirubin,Total 0.5 mg/dl (0.2-1.0); Blood Urea Nitrogen 12.0 mg/dl (6-23); Calcium 9.0 mg/dl (8.6-10.3); Carbon Dioxide 27.0 mmol/L (21-32); Chloride 106.0 mmol/L (98-107); Creatinine Clr Calc Pharmacy 67.2 ml/min; Globulin 2.6 gm/dl (2.5-4.0); Glucose 82.0 mg/dl (70-99(Fasting)); Lipase 48.0 U/L (11-82); Magnesium 1.9 mg/dl (1.7-2.4); Potassium 3.6 mmol/L (3.5-5.1); Sodium 142.0 mmol/L (136-145); Total Protein 7.1 gm/dl (6.0-8.3)
[2024-11-07 03:42] LABS: INR 1.0 (0.9-1.1); Prothrombin Time 10.9 Seconds (9.0-12.0)
[2024-11-07 03:49] LABS: Thyroid Stimulating Hormone 5.412 uIu/ml (0.300-4.500)
--- NOTE | 2024-11-07 03:54 | XRay Report ---
EXAM: XR chest 1V portable CLINICAL HISTORY: ht, dysrhythmia TECHNIQUE: An X-ray image of the chest is obtained in AP projection. COMPARISON: No prior studies are available for comparison. FINDINGS: Pulmonary Parenchyma: No evidence of consolidation, collapse, or focal opacities. No pulmonary nodules are identified. No evidence of pleural effusion or pleural thickening. Heart and Mediastinum: Heart size and shape are normal. No mediastinal widening or masses. No hilar or mediastinal lymphadenopathy. Chest leads are applied. Bony Thorax: Osteoarthritic changes. No fractures or deformities. Soft Tissues: Soft tissues overlying the chest wall are unremarkable. IMPRESSION: 1. Normal chest X-ray. 2. No acute cardiopulmonary abnormalities are identified. Electronically signed by Dean Chanel 11-07-2024 03:54 AM
--- NOTE | 2024-11-07 03:55 | CT Scan Report ---
EXAM: CT head/brain wo con CLINICAL HISTORY: off balance, SEVILLA, htn TECHNIQUE: Axial non-contrast CT scan of the brain was performed from the skull base to the high parietal region. One of the following dose reduction techniques were utilized for this exam: Automated exposure control, adjustment of the mA and/or kV according to patient size, use of iterative reconstruction. COMPARISON: 11/29/2016. FINDINGS: Brain Parenchyma: Bilateral periventricular and fronto-parietal hypodensities likley representing chronic ischemic changes. Age matched involutional brain changes. No evidence of acute infarct, hemorrhage, or mass effect. 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 Ventricular System: Ventricles are normal in size and configuration. No evidence of hydrocephalus or ventricular enlargement. Subarachnoid Spaces: Normal sulci and cisterns. No evidence of subarachnoid hemorrhage or extra-axial fluid collections. Cerebellum and Brainstem: No masses, lesions, or areas of abnormal density. Orbits: Normal appearance of the globes, optic nerves, and extraocular muscles. No evidence of orbital masses or abnormal density. Sinuses: Clear paranasal sinuses. No evidence of sinusitis or mucosal thickening. Mastoid Air Cells: Clear mastoid air cells. No evidence of mastoiditis. Skull: Normal skull morphology. IMPRESSION: Stationary appearance of the small vessel disease. Stationary appearance of the age matched involutional brain changes. Recommend clinical correlation. Electronically signed by Dean Chanel 11-07-2024 03:54 AM
[2024-11-07] MEDS ORDERED: ATROPINE SO4 1 MG/ML 1ML VIAL IV PRN (05:09)
--- NOTE | 2024-11-07 05:23 | History & Physical Report ---
Date of Service November 07, 2024 Assessment & Plan (1) 2nd degree AV block: (2) Hypertension: (3) Sleep apnea: Plan Patient is an 84-year-old male with past medical history of HTN, INÉS on CPAP, BPH. Patient presented due to concern for persistent hypertension systolic blood pressure greater than 200 after seeing his PCP 11/04 noting an elevated blood pressure and taking an extra dose of losartan on 11/04. Patient was found to be in intermittent Mobitz type II heart block with heart rates in the 30s, does convert to sinus rhythm in the 70s. He is being admitted for possible pacer placement. #Mobitz type II heart blockconverting between sinus rhythm (rate 70s) and Mobitz type II block (rates 30s). No significant cardiac history and has never seen a germination testing manager. Denies any syncopal episodes however does endorse feeling off balance and more fatigued recently. Denies any recent tick bites, initial Lyme screen negative. Electrolytes stable. Troponin negative. Patient is not on any medications that impact AV conduction. N.p.o. status for possible procedure later today Cardiology consulted, possible pacemaker External pacer pads in place Atropine as needed for HR less than 40, systolic blood pressure greater than 185, and altered mental status; please notify provider prior to administration Echocardiogram ordered EKG as needed Telemetry monitoring #HTNblood pressures elevated since arrival to the ED and for the past several days. Will closely monitor with above. Continue losartan #OSACPAP at bedtime #BPHcontinue tamsulosin #Glaucomaeyedrops not on formulary VTE ppx: SCDs, defer chemical PPx with possible surgical procedure Dispo: PCU Admission and Anticipated Discharge Date Admission Date: 11/07/24 History of Present Illness Chief Complaint: Hypertension Primary Care Provider: Chadwick Degroot MD Patient is an 84-year-old male with past medical history of HTN, INÉS on CPAP, BPH. Patient presented due to concern for persistent hypertension systolic blood pressure greater than 200 after seeing his PCP 11/04 noting an elevated blood pressure and taking an extra dose of losartan on 11/04. Patient was found to be in intermittent Mobitz type II heart block with heart rates in the 30s, does convert to sinus rhythm in the 70s. He is being admitted for possible pacer placement. Patient seen at bedside. He stated he was most concerned about his blood pressure prior to arrival. He does endorse an intermittent headache and had 1 prior to arrival that is relieved with ibuprofen that he took at home. He stated over the past few days he has felt off balance, but not dizziness, which he related to his elevated blood pressure. He also endorses fatigue when walking his dogs however does related to the heat. He has had stress at home with recent passing of one of his dogs. He denies any dizziness, lighthe adedness, chest pain, shortness of breath, fevers, chills, recent tick bites, syncopal episodes. He does been time outside going outside approximately 5 times per day with his dogs however does not remember any tick bites or rashes. He denies any significant cardiac history and has never seen a germination testing manager. He denies nicotine or alcohol use. He took all of his home medications prior to arrival, did take an extra dose of losartan 11/04. He wishes to be full code. He is agreeable to admission with possible pacer placement. Allergies Allergy/AdvReac Type Severity Reaction Status Date / Time Penicillins Allergy Unknown UNSURE OF Verified 11/04/24 16:32 RXN Tetracyclines Allergy Unknown WAS TOLD Verified 11/04/24 16:32 HE WAS ALLERGIC, UNSURE OF RXN Home Medications Medication Instructions Recorded Confirmed Type ascorbic acid (vitamin C) 500 mg 500 mg PO QAM 02/24/19 11/07/24 History capsule multivitamin 1 tab PO QAM 02/24/19 11/07/24 History tafluprost (PF) 0.0015 % eye drops 1 drops ophthalmic (eye) QPM 02/24/19 11/07/24 History in a dropperette (Zioptan (PF)) cholecalciferol (vitamin D3) 10 10 mcg PO QAM 12/26/19 11/07/24 History mcg (400 unit) capsule erythromycin 5 mg/gram (0.5 %) eye 1 applic ophthalmic (eye) PM 12/26/19 11/07/24 History ointment CPAP Machine #1 ea 03/01/21 11/07/24 Rx losartan 50 mg tablet 50 mg PO QAM #90 tabs 05/29/24 11/07/24 Rx netarsudil 0.02 % eye drops 1 drp ophthalmic (eye) QPM 07/18/24 11/07/24 History (Rhopressa) tamsulosin 0.4 mg capsule 0.4 mg PO HS #90 caps 08/09/24 11/07/24 Rx Past Med/Surg History Problem List (Updated 11/07/24 @ 04:36 by Ila Warren DO) Ataxia (Acute) 2nd degree AV block (Acute) Hypertension (Acute) Hyperglycemia Glenohumeral arthritis History of colon polyps Tinnitus (Acute) Impaired fasting glucose (Acute) Anemia, mild Left shoulder pain BPH (benign prostatic hyperplasia) Adenomatous polyp of colon Lumbar radiculopathy Dupuytrens contracture (Acute) Glaucoma of both eyes (Acute) Hyperlipidemia (Acute) pt denies Hypertension (Chronic) Nephrolithiasis (Acute) passed on own Sleep apnea (Acute) cpap Medical History Encounter for pre-operative examination History of COVID-19 Osteoarthritis BPH (benign prostatic hyperplasia) Tubular adenoma of colon Surgical History History of tooth extraction History of colonoscopy S/P knee surgery S/P arthroscopy of knee S/P hernia repair History of excision of lesion Family History Mother Coronary heart disease Father Hypertension Stroke Grandfather (Maternal) Stroke Other Prostate cancer Denies family history of Ovarian cancer Diabetes Myocardial infarction Breast cancer Colorectal cancer Social History Smoking Status: Former smoker Tobacco Type: Declines Age Started Using Tobacco: 17; Age Quit Using Tobacco: 37; packs per day: 1; Cigarettes Per Day: 20; Smoking End Date: 40 years ago; Second Hand Exposure: No; Do You Dip or Chew Tobacco: No; Hx Alcohol Use: Yes Alcohol type: wine Hx Substance Use: No Preferred Language: Amharic Communication Ability: Effective Visual Impairment: No Limitations Hearing Ability: Normal Outbound Supervisor Required: No Beliefs That Will Affect Care: None marital status: Legally Current Living Situation: Alone current occupational status: retired 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 Non-toxic appearing. HEENT- EOMI, mucous membranes moist. Hearing grossly intact. Heart-normal S1 and S2. No murmurs, rubs or gallops. Lungs-clear bilaterally, no respiratory distress, no accessory muscle use. Abdomen-normal bowel sounds and soft. No ascites noted. Non-tender. Extremities- no clubbing, cyanosis, or edema. Rheumatologic-normal range of motion. Psychiatric-normal affect. Results & Data Results & Data Vital Signs (Past 12 Hours) Vital Signs Temp Pulse Pulse Resp BP BP Pulse Ox 11/07/24 03:25 69 14 187/83 H 98 11/07/24 03:16 68 11/07/24 02:43 40 L 16 210/90 H 99 11/07/24 02:09 36.3 C L 65 16 206/99 H 98 O2 Del Method 11/07/24 03:25 Room Air 11/07/24 03:16 11/07/24 02:43 Room Air 11/07/24 02:09 Room Air Laboratory Results reviewed CBC, CMP, tick panel, magnesium, troponin, PT/INR, lipase, TSH Diagnostic Findings reviewed CXR and head CT Medications Administered EDnone ECG Additional Comments: second-degree type II AV block with HR 38 Code Status & VTE Plan Code Status Full code VTE Prophylaxis Plan VTE Prophylaxis will be ordered: Yes Supervising Physician Co-Signing Physician Notes I personally saw and examined the patient. I independently reviewed the labs, EKG, imaging, problem list, medication list, past medical history and family history. I verified all gustafson points and agree with Jessi Vidal PA-C with the following exceptions and/or additions: 84 year old male presents to the ER with elevated blood pressure. Some fatigue episodes with the heat but no presyncope. EKG with type II second degree heart block. O/E HS bradycardia with irregular beats, no murmurs, Chest CTAB, Abdo SNT A/P 2nd degree HB Mobitz 2 - unclear if this is causing him any problems, no chest pain to suggest ACS, no HF, pacing pads placed, atropine as needed for HR < 40 with hypotension or AMS, TTE, consult cardiology PG Care Time/CCT Total # of Minutes Spent Total Time Spent with Patient: Total time spent is greater than 50% in coordination of care (as documented) at patient's floor/unit and/or counseling patient: Coding Level of Care Code 90948 INT INP/OBS CARE 3/75MIN Diagnoses 2nd degree AV block I44.1 Hypertension I10 Sleep apnea G47.30
[2024-11-07] MEDS ORDERED: ONDANSETRON INJ 2 MG/ML 2 ML VIAL IV PRN (06:31)
[2024-11-07] MEDS ORDERED: MELATONIN 3 MG TAB PO PRN (06:31)
[2024-11-07] MEDS ORDERED: ACETAMINOPHEN 325 MG TAB PO PRN (06:31)
[2024-11-07] MEDS ORDERED: DOCUSATE SODIUM 100 MG CAP PO PRN (06:31)
[2024-11-07] MEDS: LACTATED RINGER'S 1,000 ML IV SCH (07:19)
[2024-11-07] MEDS: LOSARTAN POTASSIUM 50 MG TAB PO SCH (09:01)
--- NOTE | 2024-11-07 09:34 | XCELERA ---
[id number]
[2024-11-07] MEDS: LOSARTAN POTASSIUM 50 MG TAB PO ONE (12:03)
--- NOTE | 2024-11-07 13:31 | Communication Note ---
Date of Service: November 07, 2024 Please refer to the H&P dictated earlier this morning for details of presentation on admission. In brief, patient presented because of persistently high blood pressure readings. While in the ER, he was found to have Mobitz type II heart block with heart rates in the 30s. He is being evaluated by cardiology and EP cardiology. He has been n.p.o. postmidnight in anticipation of pacemaker placement. For his hypertension, I increased his losartan dose to 100 mg daily. If his blood pressure remains high, Norvasc can be added.
--- NOTE | 2024-11-07 14:37 | Electrocardiogram Report ---
Test Reason : Blood Pressure : */* mmHG Vent. Rate : 38 BPM Atrial Rate : 75 BPM P-R Int : 230 ms QRS Dur : 120 ms QT Int : 496 ms P-R-T Axes : 58 -3 12 degrees QTcB Int : 394 ms Sinus rhythm with 2:1 A-V conduction Septal infarct , age undetermined Abnormal ECG When compared with ECG of 20-May-2016 08:57, Significant changes have occurred Confirmed by Chadwick Serrano ([id number]) on 11/07/2024 2:37:21 PM Referred By: REFERRED SELF Confirmed By: Chadwick Serrano
--- NOTE | 2024-11-07 15:06 | Cardiology Consultation ---
Date of Consultation November 07, 2024 Assessment & Plan (1) Bradycardia: -ECG on admission notes sinus rhythm with 2-1 AV conduction. -Telemetry monitoring suggests type I second-degree AV block. -Case discussed with Dr. Manriquez. -Dr. Manriquez ambulated the patient and his heart rate responded appropriately. -No indication for permanent pacemaking at this time. -Follow-up with Dr. Manriquez. (2) Hypertension: -Agree with increasing losartan to 100 Mg daily. -Mild LVH noted on echocardiogram. History of Present Illness Attending Physician: Mitchell Palmer MD History of Present Illness Dr. Melendez is an 84-year-old male admitted earlier today with hypertension and bradycardia. This consultation in order to assist in his cardiac management. The patient was in his usual state of health until approximately 1 week ago. He began to note some balance issues and presented to his PCP on November 04. He was noted to be hypertensive and his losartan was increased to 100 Mg twice daily. Last evening, patient was following his blood pressure closely at home. He noticed an average of 200/100, and therefore, presented to the emergency room for further care. On arrival here, patient was noted to be bradycardic with sinus rhythm and 2-1 AV block. Hospitalization was recommended. The patient has not had any recent episodes of syncope or presyncope. He walks his dog several times every day and does not experience exertional dyspnea. Currently, patient is resting comfortably in bed without complaints. Past medical and surgical history 1. Hypertension 2. Hyperglycemia 3. Nephrolithiasis 4. BPH 5. Colonic polyps 6. Obstructive sleep apnea 7. Glaucoma 8. DJD 9. 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 Allergies Allergy/AdvReac Type Severity Reaction Status Date / Time Penicillins Allergy Unknown UNSURE OF Verified 11/04/24 16:32 RXN Tetracyclines Allergy Unknown WAS TOLD Verified 11/04/24 16:32 HE WAS ALLERGIC, UNSURE OF RXN Home Medications Medication Instructions Recorded Confirmed Type ascorbic acid (vitamin C) 500 mg 500 mg PO QAM 02/24/19 11/07/24 History capsule multivitamin 1 tab PO QAM 02/24/19 11/07/24 History tafluprost (PF) 0.0015 % eye drops 1 drops ophthalmic (eye) QPM 02/24/19 11/07/24 History in a dropperette (Zioptan (PF)) cholecalciferol (vitamin D3) 10 10 mcg PO QAM 12/26/19 11/07/24 History mcg (400 unit) capsule erythromycin 5 mg/gram (0.5 %) eye 1 applic ophthalmic (eye) PM 12/26/19 11/07/24 History ointment CPAP Machine #1 ea 03/01/21 11/07/24 Rx losartan 50 mg tablet 50 mg PO QAM #90 tabs 05/29/24 11/07/24 Rx netarsudil 0.02 % eye drops 1 drp ophthalmic (eye) QPM 07/18/24 11/07/24 History (Rhopressa) tamsulosin 0.4 mg capsule 0.4 mg PO HS #90 caps 08/09/24 11/07/24 Rx Patient History Medical History Encounter for pre-operative examination History of COVID-19 Osteoarthritis BPH (benign prostatic hyperplasia) Tubular adenoma of colon Surgical History History of tooth extraction History of colonoscopy S/P knee surgery S/P arthroscopy of knee S/P hernia repair History of excision of lesion Family History Mother Coronary heart disease Father Hypertension Stroke Grandfather (Maternal) Stroke Other Prostate cancer Denies family history of Ovarian cancer Diabetes Myocardial infarction Breast cancer Colorectal cancer Social History Smoking Status: Former smoker Tobacco Type: Declines Age Started Using Tobacco: 17; Age Quit Using Tobacco: 37; packs per day: 1; Cigarettes Per Day: 20; Smoking End Date: 40 years ago; Second Hand Exposure: No; Do You Dip or Chew Tobacco: No; Hx Alcohol Use: Yes Alcohol type: wine Hx Substance Use: No Preferred Language: Kinyarwanda Communication Ability: Effective Visual Impairment: No Limitations Hearing Ability: Normal Slat Basket Maker Helper Required: No Beliefs That Will Affect Care: None marital status: Legally Current Living Situation: Alone current occupational status: retired 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 HEENT exam is negative. Neck reveals normal carotid upstrokes without bruits. Jugular venous pressure is flat at 90. There is no thyromegaly. Cardiovascular exam reveals a regular rhythm with distant heart sounds. No obvious murmurs. Lungs are clear without rales, rhonchi, or wheezes. Abdomen is soft without bruits. Extremities reveal intact radial artery and posterior tibial pulses bilaterally. There is no peripheral edema. Results & Data Vital Signs (Past 12 Hours) Vital Signs Temp Pulse Pulse Resp BP BP Pulse Ox 11/07/24 11:55 36.6 C 88 20 190/90 H 94 11/07/24 08:15 36.6 C 43 L 20 165/83 H 99 11/07/24 06:32 11/07/24 06:25 40 L 11/07/24 06:15 36.7 C 40 L 20 179/75 H 98 11/07/24 06:04 48 L 14 189/76 H 94 11/07/24 05:00 50 L 16 185/91 H 98 11/07/24 03:25 69 14 187/83 H 98 11/07/24 03:16 68 O2 Del Method 11/07/24 11:55 Room Air 11/07/24 08:15 Room Air 11/07/24 06:32 Room Air 11/07/24 06:25 11/07/24 06:15 Room Air 11/07/24 06:04 Room Air 11/07/24 05:00 Room Air 11/07/24 03:25 Room Air 11/07/24 03:16 Laboratory Results CBC and PRP are unremarkable. High-sensitivity troponin is normal at 13.6. Free T4 is normal at 0.85. Lyme titer is negative. Diagnostic Findings Echocardiogram notes normal left ventricular systolic function with ejection fraction of 60 to 65%. There is mild LVH along with mild mitral regurgitation. No prior studies for comparison. Baseline EKG notes sinus rhythm with 2-1 AV block. Telemetry monitoring suggests type I second-degree AV block. Chest x- ray shows no active disease. PG Care Time/CCT Total # of Minutes Spent Total Time Spent with Patient: Total time spent is greater than 50% in coordination of care (as documented) at patient's floor/unit and/or counseling patient: Coding Level of Care Code 38419 INT INP/OBS CARE 3/75MIN Diagnoses Bradycardia R00.1 Hypertension I10
[2024-11-07] MEDS: TAMSULOSIN HCL 0.4 MG CAP PO SCH (19:57)
[2024-11-08 07:10] LABS: Hematocrit (blood only) 38.7 % (42.0-52.0); Hemoglobin 13.2 g/dl (14.0-18.0); Immature Granulocytes # (auto) 0.02 K/uL (0.01-0.20); Immature Granulocytes % (auto) 0.3 %; Mean Corpuscular Hemoglobin 31.0 pg (25.0-34.0); Mean Corpuscular Volume 90.8 fL (80.0-100.0); Platelet Count 208 K/uL (130-400); RDW Standard Deviation 42.9 fL (36.4-46.3); Red Blood Count 4.26 M/uL (4.70-6.10); White Blood Count 5.93 K/ul (4.8-10.8)
[2024-11-08 07:33] LABS: Anion Gap 6.0 (3-11); Blood Urea Nitrogen 18.0 mg/dl (6-23); Calcium 8.8 mg/dl (8.6-10.3); Carbon Dioxide 29.0 mmol/L (21-32); Chloride 107.0 mmol/L (98-107); Creatinine Clr Calc Pharmacy 67.7 ml/min; Glucose 91.0 mg/dl (70-99(Fasting)); Magnesium 1.9 mg/dl (1.7-2.4); Potassium 4.1 mmol/L (3.5-5.1); Sodium 142.0 mmol/L (136-145)
[2024-11-08] MEDS: LOSARTAN POTASSIUM 50 MG TAB PO SCH (08:18)
--- NOTE | 2024-11-08 14:53 | Hospitalist Progress Note ---
Date of Service November 08, 2024 Assessment & Plan (1) 2nd degree AV block: (2) Hypertension: (3) Sleep apnea: Plan Patient is an 84-year-old male with past medical history of HTN, INÉS on CPAP, BPH. Patient presented due to concern for persistent hypertension systolic blood pressure greater than 200 after seeing his PCP 11/04 noting an elevated blood pressure and taking an extra dose of losartan on 11/04. Patient was found to be in intermittent Mobitz type II heart block with heart rates in the 30s, does convert to sinus rhythm in the 70s. He is being admitted for possible pacer placement. #Mobitz type II heart blockconverting between sinus rhythm (rate 70s) and Mobitz type II block (rates 30s). No significant cardiac history and has never seen a finish inspector. Denies any syncopal episodes however does endorse feeling off balance and more fatigued recently. Denies any recent tick bites, initial Lyme screen negative. Electrolytes stable. Troponin negative. Patient is not on any medications that impact AV conduction. Patient was evaluated by cardiology and EP cardiology Heart block was thought to be Mobitz type I heart block Moreover the patient had appropriate heart rate response with ambulation Per cardiology, decision was made to not place a pacemaker The patient remains asymptomatic Echocardiogram reviewed #HTNblood pressures elevated since arrival to the ED and for the past several days. Increase losartan to 100 mg daily Added Norvasc 10 mg daily Will monitor blood pressure today #OSACPAP at bedtime #BPHcontinue tamsulosin #Glaucomaeyedrops not on formulary VTE ppx: SCDs, defer chemical PPx with possible surgical procedure Dispo: PCU Likely discharge tomorrow 11/09 Admission and Anticipated Discharge Date Admission Date: November 07, 2024 Subjective Patient denies any chest pain, shortness of breath, dizziness, palpitations. Review of Systems Review of Systems: All systems reviewed & are unremarkable except as noted in Subjective Physical Exam Physical Exam: General: Awake, conversant Heart: S1, S2/regular rate and rhythm, no murmur rubs or gallops Lungs: Clear to auscultation bilaterally. Normal effort Abdomen: Soft/nontender/nondistended. No hepatosplenomegaly Extremities: No clubbing/cyanosis. No edema Behavior: Appropriate, cooperative Results & Data Results & Data Vital Signs (Past 12 Hours) Vital Signs Temp Pulse Pulse Resp BP Pulse Ox O2 Del Method 07/18/25 13:15 73 167/95 H 11/08/24 11:49 36.8 C 69 18 166/91 H 95 Room Air 11/08/24 07:52 36.7 C 71 20 130/70 96 Room Air 11/08/24 06:00 60 PG Care Time/CCT Total # of Minutes Spent Total Time Spent with Patient: Total time spent is greater than 50% in coordination of care (as documented) at patient's floor/unit and/or counseling patient: Coding Level of Care Code 20327 SUB INP/OBS CARE 2/35MIN Diagnoses 2nd degree AV block I44.1 Hypertension I10 Sleep apnea G47.30
[2024-11-09 04:11] VITALS: TEMP 97.9
[2024-11-09 08:43] VITALS: BP 147/88; RESP 20; O2SAT 95
--- NOTE | 2024-11-09 09:46 | Discharge Summary ---
Date of Service November 09, 2024 Admission HPI Per Admitting Provider Patient is an 84-year-old male with past medical history of HTN, INÉS on CPAP, BPH. Patient presented due to concern for persistent hypertension systolic blood pressure greater than 200 after seeing his PCP 11/04 noting an elevated blood pressure and taking an extra dose of losartan on 11/04. Patient was found to be in intermittent Mobitz type II heart block with heart rates in the 30s, does convert to sinus rhythm in the 70s. He is being admitted for possible pacer placement. Patient seen at bedside. He stated he was most concerned about his blood pressure prior to arrival. He does endorse an intermittent headache and had 1 prior to arrival that is relieved with ibuprofen that he took at home. He stated over the past few days he has felt off balance, but not dizziness, which he related to his elevated blood pressure. He also endorses fatigue when walking his dogs however does related to the heat. He has had stress at home with recent passing of one of his dogs. He denies any dizziness, lighthead edness, chest pain, shortness of breath, fevers, chills, recent tick bites, syncopal episodes. He does been time outside going outside approximately 5 times per day with his dogs however does not remember any tick bites or rashes. He denies any significant cardiac history and has never seen a top trimmer. He denies nicotine or alcohol use. He took all of his home medications prior to arrival, did take an extra dose of losartan 11/04. He wishes to be full code. He is agreeable to admission with possible pacer placement. Principal Diagnosis Second-degree Mobitz type I heart block Uncontrolled hypertension Discharge Exam General: Awake, conversant Heart: S1, S2/regular rate and rhythm, no murmur rubs or gallops Lungs: Clear to auscultation bilaterally. Normal effort Abdomen: Soft/nontender/nondistended. No hepatosplenomegaly Extremities: No clubbing/cyanosis. No edema Behavior: Appropriate, cooperative Discharge Data Allergies Allergy/AdvReac Type Severity Reaction Status Date / Time Penicillins Allergy Unknown UNSURE OF Verified 11/04/24 16:32 RXN Tetracyclines Allergy Unknown WAS TOLD Verified 11/04/24 16:32 HE WAS ALLERGIC, UNSURE OF RXN Consultations 11/07/24 04:44 ED Decision to Admit Stat 11/07/24 05:09 Consult Cardiology Routine Ordered Studies Chest X-Ray 11/07/24 02:52 EXAM: XR chest 1V portable CLINICAL HISTORY: ht, dysrhythmia TECHNIQUE: An X-ray image of the chest is obtained in AP projection. COMPARISON: No prior studies are available for comparison. FINDINGS: Pulmonary Parenchyma: No evidence of consolidation, collapse, or focal opacities. No pulmonary nodules are identified. No evidence of pleural effusion or pleural thickening. Heart and Mediastinum: Heart size and shape are normal. No mediastinal widening or masses. No hilar or mediastinal lymphadenopathy. Chest leads are applied. Bony Thorax: Osteoarthritic changes. No fractures or deformities. Soft Tissues: Soft tissues overlying the chest wall are unremarkable. IMPRESSION: 1. Normal chest X-ray. 2. No acute cardiopulmonary abnormalities are identified. Electronically signed by Dean Chanel 11-07-2024 03:[address] 11/07/24 02:52 EXAM: CT head/brain wo con CLINICAL HISTORY: off balance, SEVILLA, htn TECHNIQUE: Axial non-contrast CT scan of the brain was performed from the skull base to the high parietal region. One of the following dose reduction techniques were utilized for this exam: Automated exposure control, adjustment of the mA and/or kV according to patient size, use of iterative reconstruction. COMPARISON: 11/29/2016. FINDINGS: Brain Parenchyma: Bilateral periventricular and fronto-parietal hypodensities likley representing chronic ischemic changes. Age matched involutional brain changes. No evidence of acute infarct, hemorrhage, or mass effect. 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 Ventricular System: Ventricles are normal in size and configuration. No evidence of hydrocephalus or ventricular enlargement. Subarachnoid Spaces: Normal sulci and cisterns. No evidence of subarachnoid hemorrhage or extra-axial fluid collections. Cerebellum and Brainstem: No masses, lesions, or areas of abnormal density. Orbits: Normal appearance of the globes, optic nerves, and extraocular muscles. No evidence of orbital masses or abnormal density. Sinuses: Clear paranasal sinuses. No evidence of sinusitis or mucosal thickening. Mastoid Air Cells: Clear mastoid air cells. No evidence of mastoiditis. Skull: Normal skull morphology. IMPRESSION: Stationary appearance of the small vessel disease. Stationary appearance of the age matched involutional brain changes. Recommend clinical correlation. Electronically signed by Dean Chanel 11-07-2024 03:54 AM 07/17/25 02:52 CT head/brain wo con Stat Hospital Course (1) 2nd degree AV block: (2) Hypertension: (3) Sleep apnea: Plan Patient is an 84-year-old male with past medical history of HTN, INÉS on CPAP, BPH. Patient presented due to concern for persistent hypertension systolic blood pressure greater than 200 after seeing his PCP 11/04 noting an elevated blood pressure and taking an extra dose of losartan on 11/04. Patient was found to be in intermittent Mobitz type II heart block with heart rates in the 30s, does convert to sinus rhythm in the 70s. He is being admitted for possible pacer placement. #Mobitz type II heart blockconverting between sinus rhythm (rate 70s) and Mobitz type II block (rates 30s). No significant cardiac history and has never seen a top trimmer. Denies any syncopal episodes however does endorse feeling off balance and more fatigued recently. Denies any recent tick bites, initial Lyme screen negative. Electrolytes stable. Troponin negative. Patient is not on any medications that impact AV conduction. Patient was evaluated by cardiology and EP cardiology Heart block was thought to be Mobitz type I heart block Moreover the patient had appropriate heart rate response with ambulation Per cardiology, decision was made to not place a pacemaker The patient remains asymptomatic Echocardiogram reviewed I plan to discharge the patient with an event monitor. It is being arranged by nurse navigator. Patient will follow-up with cardiology outpatient in a month #HTNblood pressures elevated since arrival to the ED and for the past several days. Increased losartan to 100 mg daily Added Norvasc 10 mg daily Blood pressure better controlled on this regimen I will discharge the patient today. I asked the patient to check blood pressure at the same time every day and to keep a log of the readings. He has been advised to take the log to his next PCP appointment. #OSACPAP at bedtime #BPHcontinue tamsulosin #Glaucomaeyedrops not on formulary Discharge to home today Total Time Total Time Spent Total Time Spent (In Minutes): 35 Discharge Plan Discharge Items Patient Disposition: Home - Self-Care Reason For Visit: SECOND-DEGREE TYPE II HEART BLOCK Discharge Diagnosis: Second-degree Mobitz type I heart block Uncontrolled hypertension Condition on Discharge: Fair Activity: Resume your previous activity Non-emergency contact: Primary Care Provider Call non-emergency contact if: you have any medication questions and your symptoms worsen Follow-up/Referrals: Chadwick Serrano MD [Physician] - (Patient aware and will call to schedule his follow up) Chadwick Degroot MD [Primary Care Provider] - 11/19/24 11:00 am (Primary care hospital follow up scheduled on 11/19/24 at 11:00 with Sumaya Cardoso PA-C) Diet: Heart Healthy Addtl Attending Provider Instructions: Advised to note that an event monitor will be arranged for you. You will get a call to make the arrangements Advised to follow-up with PCP in 1 week and with top trimmer in 1 month Advised to check blood pressure once daily and to keep a log of the readings. Take the log to your PCP appointment. Pending Studies at Discharge: No Stand-Alone Forms: My [facility] Medications and DC Order Prescriptions: New amlodipine 5 mg Tablet 10 mg PO QAM 30 Days Qty: 60 0RF losartan 50 mg Tablet 100 mg PO QAM 30 Days Qty: 60 0RF Continued (DME) CPAP Machine Misc See Rx Instructions .MEDSUPPLY Qty: 1 0RF Rx Instructions: CPAP at 5 cm H2O with humidification. Appropriate supplies. Lifetime need. tamsulosin 0.4 mg capsule 0.4 mg PO HS Qty: 90 1RF erythromycin 5 mg/gram (0.5 %) ointment 1 applic ophthalmic (eye) PM Rx Instructions: Right eye only cholecalciferol (vitamin D3) 10 mcg (400 unit) capsule 10 mcg PO QAM multivitamin tablet 1 tab PO QAM ascorbic acid (vitamin C) 500 mg capsule 500 mg PO QAM Zioptan (PF) 0.0015 % dropperette 1 drops OP QPM Rhopressa 0.02 % drops 1 drp ophthalmic (eye) QPM Discontinued losartan 50 mg tablet 50 mg PO QAM Qty: 90 1RF Discharge Orders: Discharge Order (Routine); Ordered 11/09/24 Ordered By: Mitchell Palmer Admission Data Admit Date/Time: 11/07/24 05:16 Attending Provider: Mitchell Palmer Admit Provider: Julian Garcia Primary Care Provider: Chadwick Degroot Other Providers: Julian Garcia; Chadwick Serrano
[2024-11-09 09:55] VITALS: PULSE 61
== END 2024-11-09 11:04 | disposition home or self-care (01) ==
LOC: SUATTDRO → ED 02:06 → INTOOBSV 05:16 → SUATTDRO 05:16 → 2E 05:16